=== PATIENT | female | born 1975 | race Caucasian/White ===

== ENCOUNTER 2022-03-17 10:10 | Emergency (ER) | payer MEDICAID ==
[2022-03-17 10:19] VITALS: BP 145/94
--- NOTE | 2022-03-17 10:51 | ED Physician Documentation ---
PD HPI SKIN - Stated complaint Stated Complaint: BILAT EYE PX - Chief complaint Chief Complaint: Wound - History obtained from History obtained from: Patient - Additional information Additional information: 46-year-old woman has been dealing with what was previously diagnosed as a staph infection for the last 8 months. Seems to get better while on antibiotics but then flares up again. Current flare has been going on for 3 weeks with itching and burning to the periorbital areas and infraorbital areas. Review of Systems Constitutional: reports: Reviewed and negative Eyes: reports: Reviewed and negative Cardiac: reports: Reviewed and negative Respiratory: reports: Reviewed and negative PD PAST MEDICAL HISTORY - Present Medications Home Medications: Ambulatory Orders Medication Instructions Recorded Confirmed Doxycycline Hyclate 100 mg PO BID #20 tab.sr 03/17/22 Metronidazole 1% Gel [Metrogel] 2 gm TOP DAILY #60 ahfu 03/17/22 - Allergies Allergies/Adverse Reactions: Allergies Allergy/AdvReac Type Severity Reaction Status Date / Time No Known Drug Allergies Allergy Verified 03/17/22 10:19 PD ED PE NORMAL - Vitals Vital signs reviewed: Yes - General General: Alert and oriented X 3, No acute distress - HEENT HEENT: PERRL, EOMI, Other (She has redness and slight edema especially infraorbitally, a little more right than left and mild periorbital swelling as well.) - Neuro Neuro: Alert and oriented X 3, Normal speech Results - Vitals Vitals: Vital Signs - 24 hr 03/17/22 10:17 Temperature 36.7 C Heart Rate 80 Respiratory 14 Rate Blood Pressure 145/94 H O2 Saturation 100 Oxygen O2 Source Room air PD MEDICAL DECISION MAKING - ED course ED course: To me this is more consistent with rosacea than a staph infection. A culture was done but I expect probably normal skin esteban. Departure - Departure Disposition: 01 Home, Self Care Clinical Impression: Rosacea Condition: Good Record reviewed to determine appropriate education?: Yes Instructions: ED Rosacea Prescriptions: Doxycycline Hyclate 100 mg PO BID #20 tab.sr Metronidazole 1% Gel [Metrogel] 2 gm TOP DAILY #60 ahfu Comments: As discussed, I suspect you have rosacea as opposed to a staph infection. We are performing a wound culture. If a resistant organism is identified we will call you in a few days time but I encourage you to look up the results on the patient portal. I expect most likely either no growth or growth of normal skin esteban. I sent your prescriptions electronically to [facility] in [place]. In addition to the prescribed medications use hydrocortisone [id number] as needed for the itching. Reasonable to follow-up with dermatology, the closest is here in [place], Lawanda Burris nurse practitioner, [address] [facility],
== END 2022-03-17 11:00 | disposition home or self-care (01) ==
LOC: ED 10:10
DX: L71.9 Rosacea, unspecified (principal)
CPT/HCPCS: 87070; 87205; 99282; 99283